=== PATIENT | female | born 1945 | race Caucasian/White ===

== ENCOUNTER → 2018-06-19 | Outpatient (CLI) | payer OTHER ==
[~2018-06-19] MED LIST: ALIVE WOMEN'S1 EAC1 PO; ASPIR-TRIN325 MG PO; FISH OIL 1,4001 EACH PO; GLUCOPHAGE XR500 MG PO; LISINOPRIL10 MG PO; NIACIN ER500 MG PO; PIOGLITAZONE15 MG PO; [UNRECOGNIZED DRUG - OTHER] PO
== END ==
LOC: M.RAD 10:00
DX: Z12.31 Encounter for screening mammogram for malignant neoplasm of breast (principal)

== ENCOUNTER → 2019-07-21 | Outpatient (CLI) | payer OTHER | LOC: M.RAD 08:00 | DX: Z12.31 Encounter for screening mammogram for malignant neoplasm of breast (principal) ==

== ENCOUNTER → 2019-08-24 | Outpatient (CLI) | payer OTHER ==
--- NOTE | 2019-08-24 16:59 | 2DMMODE ---
[place] [address] 2 D/M-MODE ECHOCARDIOGRAM Name: OTONIELROXANNE F Room: [facility]#: [id number] Admission: 08/24/19 Attend Phys: Dara Lomeli Discharge: Date of : 45 Date of Service: 08/24/19 1659 Report #: [id number] THIS REPORT FOR: //name// APPROVED REPORT Study performed: 08/24/2019 13:09:22 EXAM: Comprehensive 2D, Doppler, and color-flow Echocardiogram Patient Location: Out-Patient BSA: 1.98 HR: 76 bpm BP: 140/88 mmHg Other Information Study Quality: Good Indications Murmur 2D Dimensions IVSd: 10.09 (7-11mm) LVOT Diam: 20.64 (18-24mm) LVDd: 39.16 mm PWd: 10.09 (7-11mm) Ascending Ao: 34.49 (22-36mm) LVDs: 23.64 (25-40mm) Aortic Root: 28.74 mm Volumes Left Atrial Volume (Systole) LA ESV Index: 12.60 mL/m2 Aortic Valve AoV Peak Zachary.: 1.41 m/s AO Peak Gr.: 7.97 mmHg LVOT Max P.90 mmHg AO Mean Gr.: 4.39 mmHg LVOT Mean P.54 mmHg LVOT Max V: 1.11 m/s AO V2 VTI: 28.37 cm LVOT Mean V: 0.74 m/s BRANDON (VTI): 2.72 cm2 LVOT V1 VTI: 23.07 cm Mitral Valve E/A Ratio: 0.66 MV Decel. Time: 283.86 ms MV E Max Zachary.: 0.58 m/s MV PHT: 82.32 ms MVA (PHT): 2.67 [place] [address] 2 D/M-MODE ECHOCARDIOGRAM Name: OTONIELNOELLEMary Frankel Room: [facility]#: [id number] Admission: 08/24/19 Attend Phys: Dara Lomeli Discharge: Date of : 45 Date of Service: 08/24/19 1659 Report #: [id number] TDI E/Lateral E': 5.80 E/Medial E': 8.29 Medial E' Zachary.: 0.07 m/s Lateral E' Zachary.: 0.10 m/s Pulmonary Valve PV Peak Zachary.: 0.85 m/s PV Peak Gr.: 2.91 mmHg Tricuspid Valve RAP Estimate: 5.00 mmHg TR Peak Gr.: 23.19 mmHg RVSP: 28.19 mmHg PA Pressure: 28.19 mmHg Left Ventricle The left ventricle is normal size. There is normal LV segmental wall motion. There is normal left ventricular wall thickness. Left ventricular systolic function is normal. LVEF is 60-65%. Grade I - abnormal relaxation pattern. Right Ventricle The right ventricle is normal size. The right ventricular systolic function is normal. Atria The left atrium size is normal. The right atrium size is normal. Aortic Valve The aortic valve is normal in structure. No aortic regurgitation is present. There is no aortic valvular stenosis. Mitral Valve The mitral valve is normal in structure. Trace mitral regurgitation. No evidence of mitral valve stenosis. Tricuspid Valve The tricuspid valve is normal in structure. Mild tricuspid regurgitation. No pulmonary hypertension. Pulmonic Valve The pulmonary valve is normal in structure. There is no pulmonic valvular regurgitation. Great Vessels The aortic root is normal in size. [place] [address] 2 D/M-MODE ECHOCARDIOGRAM Name: ROXANNE FREDERICK Room: [facility]#: [id number] Admission: 08/24/19 Attend Phys: Dara Lomeli Discharge: Date of : 45 Date of Service: 08/24/19 1659 Report #: [id number] collapses >50% with inspiration. Pericardium There is no pericardial effusion. <Conclusion> The left ventricle is normal size. There is normal left ventricular wall thickness. Left ventricular systolic function is normal. LVEF is 60-65%. Grade I - abnormal relaxation pattern. Trace mitral regurgitation. Mild tricuspid regurgitation. No pulmonary hypertension. IVC is normal in size and collapses >50% with inspiration. <ELECTRONICALLY SIGNED> By: Collin Min MD, FACC 08/24/191658 [id number] 58 Collin Min MD, FACC /INF
== END ==
LOC: M.CRD 08-03 16:40
DX: I36.1 Nonrheumatic tricuspid (valve) insufficiency (principal); M85.88 Other specified disorders of bone density and structure, other site; M81.0 Age-related osteoporosis without current pathological fracture; E28.39 Other primary ovarian failure; Z78.0 Asymptomatic menopausal state

== ENCOUNTER → 2020-11-21 | Outpatient (CLI) | payer OTHER | LOC: M.RAD 08:54 | PROVIDERS: ATTEND Family Medicine | DX: Z12.31 Encounter for screening mammogram for malignant neoplasm of breast (principal) ==

== ENCOUNTER → 2021-02-22 | Outpatient (CLI) | payer OTHER | LOC: M.ULTRA 13:24 | PROVIDERS: ATTEND Family Medicine | DX: D25.9 Leiomyoma of uterus, unspecified (principal); N95.0 Postmenopausal bleeding ==

== ENCOUNTER → 2021-11-28 | Outpatient (CLI) | payer OTHER | LOC: M.RAD 10-05 12:28 | PROVIDERS: ATTEND Family Medicine | DX: Z12.31 Encounter for screening mammogram for malignant neoplasm of breast (principal); M85.88 Other specified disorders of bone density and structure, other site; N95.1 Menopausal and female climacteric states ==